=== PATIENT | female | born 1970 | race Caucasian/White ===

== ENCOUNTER 2020-09-04 13:18 | Observation (INO) | payer MEDICAID, SELFPAY ==
[2020-09-04] VITALS (73 sets, daily range): BP systolic 79–118; BP diastolic 47–94; PULSE 52–119; RESP 0–20; TEMP 36.5–38.2; TEMPC 37; O2SAT 92–98; BMI 22.3
[2020-09-04] MEDS: Normal Saline 1,000 ML 1000 ML IV (14:00)
--- NOTE | 2020-09-04 14:15 | DI.CT_ITS ---
Exam(s) CT ABDOMEN PELVIS W EXAM: CT ABDOMEN PELVIS W CLINICAL HISTORY: RLQ pain TECHNIQUE: Imaging Protocol: Axial computed tomography images with coronal and sagittal reformatted images were created and reviewed CONTRAST MATERIAL: Intravenous: Omnipaque 350 Contrast volume:100 mL Oral: No COMPARISON: No exams were available for comparison FINDINGS: ABDOMEN: Lung Bases: Dependent atelectasis is seen in the bases. The patient has bilateral breast implants. Liver: Normal density. No measurable mass. Portal, Superior Mesenteric, and Splenic Veins: Unremarkable. Gallbladder and Biliary Tract: No radiodense calculus or dilation. Pancreas: Normal density, no abnormal calcifications or inflammatory process. Spleen: Normal. Adrenals: Right and left adrenal glands are identified and are unremarkable. Kidneys: There is a solitary right kidney. No radiodense stones or obstructive uropathy. No masses s een. The patient is status post left nephrectomy. Abdominal Aorta: Abdominal portion non-dilated. Mild atherosclerosis. Bowel: No obstruction or bowel wall thickening. No evidence of appendicitis. There is a large amount of stool in the colon. Peritoneal Cavity: No ascites, collection or mesenteric inflammatory response. No free air. Lymph Nodes: Within normal limits. Bones: Within normal limits for the patient's age. Soft Tissues: Unremarkable. PELVIS: Bladder: Symmetric distention, no gross wall thickening. Reproductive Organs: There are surgical clips in the left adnexa. This may reflect on the patient's prior surgery. Possible tubal ligation. In the right adnexa, there is a 3.4 x 3.1 x 3.1 cm compl ex cystic lesion with layering high density material. In the left adnexa there is a complex cystic l esion measuring 7.1 x 5.3 x 7.0 cm. Lymph Nodes: Within normal limits. Bones: Within normal limits for the patient's age. IMPRESSION: 1. Bilateral complex cystic adnexal lesions which are likely ovarian in origin. While these may repr esent benign hemorrhagic cysts, infection or neoplasm cannot be entirely excluded. Ultrasound is rec ommended for further evaluation. 2. Constipation. 3. Left nephrectomy. RADIATION DOSE DELIVERED: 898.61mGy.cm Total DLP DATA REPOSITORY: All CT scans at this facility are submitted to the National Radiology Data Registry (NRDR) Dose Index Registry (DIR) with the [employer] (ACR). RADIATION OPTIMIZATION: All CT scans at this facility use at least one of these dose optimization te chniques: automated exposure control; mA and/or kV adjustment per patient size (includes targeted exa ms where dose is matched to clinical indication); or iterative reconstruction.
--- NOTE | 2020-09-04 14:23 | W.ED.GENAD ---
Discharge Plan Disposition Patient Disposition: [facility] INPATIENT Condition: Stable Discharge Details Clinical Impression: Mass of ovary Admit Date/Time: 09/04/20 22:22 Admit Provider: Galina Clifford Attending Provider: Karol Solano Primary Care Provider: Jamel Wong ED Provider: Kenneth Kramer Discharge Data Discharge Date/Time-TO BE ENTERED AT DEPARTURE: 09/04/20 20:45 Discharge Physician: Galina Clifford Medical Decision Making <Nikki Keenan MD - Last Filed: 09/10/20 21:35> Jael Roman is a 49 y/o woman who presented to the emergency department with several days of abdominal pain, initially central now more focal in the RLQ and more severe. On exam Pt is well and non-toxic appearing, but does appear uncomfortable. Diffuse TTP of the abdomen, worse in the RLQ. Concern for appy, colitis, UTI, other. Exam/hx at this time not c/w sepsis, PID, acute aortic pathology. Plan for IV placement, IV morphine (Pt states she would like pain meds but is very sensitive to opiates and requests low dose), IV zofran, screening labs, UA, CT abd/pelv, IV fluid hydration. Labs reviewed, WBC 12. Pt signed out to Dr. Kramer at time of shift change with CT results pending. Medical Records Medical records reviewed: Yes I reviewed the patient's medical records. Lab Data Lab results reviewed: Yes I reviewed the patient's lab results. Labs: 09/04/20 14:00 Blood Blood Culture - Pending 09/04/20 15:38 Blood Blood Culture - Pending Laboratory Tests Range/Units 09/04/20 09/04/20 09/04/20 14:00 14:00 14:15 WBC (4.4-10.8) 10^3/uL 12.42 H RBC (3.93-5.22) 10^6/uL 4.02 Hgb (11.2-15.7) g/dL 12.8 Hct (36.0-46.0) % 38.0 MCV (80-95) fL 94.5 MCH (27.0-33.0) pg 31.8 MCHC (32.0-36.0) % 33.7 RDW (11.7-14.6) % 14.5 Plt Count (130-400) 10^3/uL 275 MPV (8.0-11.0) fL 10.6 Immature Gran % 0.3 Neutrophils % 75.1 Lymphocytes % 13.5 Monocytes % 8.9 Eosinophils % 1.8 Basophils % 0.4 Nucleated RBC % % 0 Absolute Neutrophils (1.2-6.7) 10^3/uL 9.33 H Absolute Lymphocytes (1.2-3.4) 10^3/uL 1.68 Absolute Monocytes (0.1-0.8) 10^3/uL 1.11 H Absolute Eosinophils (0.0-0.7) 10^3/uL 0.22 Absolute Basophils (0.0-0.2) 10^3/uL 0.05 Sodium (136-145) mmol/L 138 Potassium (3.5-5.1) mmol/L 4.2 Chloride (98-107) mmol/L 103 Carbon Dioxide (21.0-32.0) mmol/L 24.4 Anion Gap (3-11) mmol/L 10.6 BUN (7-18) mg/dL 13 Creatinine (0.55-1.02) mg/dL 0.8 Estimated GFR/1.73 m2 (mL/min/1.73m2) >= 60.00 Glucose (74-106) mg/dL 93 Calcium (8.5-10.1) mg/dL 8.4 L Total Bilirubin (0.2-1.0) mg/dL 0.6 AST (15-37) U/L 22 ALT (14-59) U/L 27 Alkaline Phosphatase (46-116) U/L 50 Total Protein (6.4-8.2) g/dL 7.5 Albumin (3.4-5.0) g/dL 3.7 Lipase (73-393) U/L 173 Urine Color (Yellow) Yellow Urine Clarity (Clear) Clear Urine pH (5-8) 6.5 Ur Specific [place] (1.005-1.025) 1.020 Urine Protein (Negative) mg/dL Negative Urine Ketones (Negative) mg/dL Negative Urine Blood (Negative) Small H Urine Nitrite (Negative) Negative Urine Bilirubin (Negative) Negative Urine Urobilinogen (Up TO 0.2) EU/dL 0.2 Ur Leukocyte Esterase (Negative) Negative Urine RBC (0-2) HPF 0-2 Urine WBC (0-5) HPF Negative Ur Epithelial Cells (Negative) HPF Moderate Urine Crystals (Negative) HPF Negative Urine Bacteria (Negative) HPF Rare Urine Casts (Negative) LPF Negative Urine Mucus (Negative) Negative Ur Culture Indicated? No Urine Glucose (Negative) mg/dL Negative <Kenneth Kramer, DO - Last Filed: 09/04/20 20:08> Patient was signed out to me my colleague Sena Ree. Please refer to her HPI, physical exam assessment and plan. At time of signout we are waiting on reassessment and CT imaging. CT imaging has returned and there appears to be a large 7 cm adnexal mass. On reassessment upon my discussion with the patient it appears that the pain seems to be coming and going and is notably severe during its presence. Signs and symptoms are certainly concerning for clinical torsion at the specific time of my reassessment. However currently right now the patient feels well and pain is well controlled. I did contact Dr. Clifford of a [facility] and discussed the case with her. She to is concern for torsion picture. Patient is made it clear that she does not want to have any children, and she is actually discussed with other surgeons having her uterus and ovaries removed in the past. At this time Dr. Clifford would like to take the patient to surgery for surgical removal of the mass. Patient will be admitted for further management. I have extensively reviewed the treatment plan and discharge instructions with the patient. I have addressed all patient concerns at this time. The patient was made aware of what symptoms to monitor for that would warrant a return to the emergency department. Discussed the plan with the patient, they demonstrate verbal understanding and agreement with our assessment and plan at this time. The documentation in this chart was dictated using [employer] dictation software. Please excuse any dictation errors. FINDINGS: Lungs: Dependent atelectasis in the lung bases. Liver: Normal. No mass. Gallbladder and bile ducts: Normal. No calcified stones. No ductal dilation. Pancreas: Normal. No ductal dilation. Spleen: Normal. No splenomegaly. Adrenal glands: Normal. No mass. Kidneys and ureters: Solitary right kidney. Stomach and bowel: Large amount of stool in the colon. Appendix: No evidence of appendicitis but the appendix is not visualized. Intraperitoneal space: Unremarkable. No free air. No significant fluid collection. Vasculature: Unremarkable. No abdominal aortic aneurysm. Lymph nodes: Unremarkable. No enlarged lymph nodes. Urinary bladder: Unremarkable as visualized. Reproductive: There are 2 clips in the left adnexa which have an appearance suggestive of tubal ligation clips. These could be related to the patient's previous bladder surgery. Complex cystic lesion in the posterior left adnexa measuring approximately 7.1 by 5.3 by 7 cm in AP, transverse, and craniocaudad dimension. This contains a unilocular cystic component that could be a very large ovarian cyst. In the posterior right adnexa there is a more complex appearing cyst with higher density material layering posteriorly that could be a hemorrhagic cyst. This measures approximately 3.4 x 3.1 by 3.1 cm in AP, transverse, and craniocaudad dimension. Ultrasound is recommended. Bones/joints: Unremarkable. No acute fracture. Soft tissues: Bilateral breast implants. IMPRESSION: 1. Complex cystic lesions in the bilateral adnexa, right greater than left, measuring approximately 7.1 cm. These could be due to functional, inflammatory, or neoplastic etiology. Ultrasound recommended. 2. Constipation 3. Left nephrectomy Thank you for allowing us to participate in the care of your patient. Dictated and Authenticated by: Bita Dinero MD 09/04/2020 5:44 PM Eastern Time ([place] & [place]) FINDINGS: Lungs: Lungs are clear without consolidation. Pulmonary tricia: Unremarkable contours. Pleural spaces: No pleural effusion. No pneumothorax. Heart/Mediastinum: Unremarkable contours. No cardiomegaly. Bones/joints: Unremarkable. Intraperitoneal space: Visualized upper abdomen is unremarkable. IMPRESSION: No acute findings. No pneumonia. Thank you for allowing us to participate in the care of your patient. Dictated and Authenticated by: Kevin Cardenas MD 09/04/2020 6:47 PM Eastern Time ([place] & [place]) HPI <Nikki Keenan MD - Last Filed: 09/10/20 21:35> General Mode of arrival: ambulatory. Date/Time Provider Initiated Documentation: 09/04/20 13:45. Limitations to Documentation: no limitations. Information obtained by: patient, RN notes reviewed and old records reviewed. HPI Narrative: Jael Roman is a 49-year-old woman with a history of bladder cancer now in remission status post left nephrectomy, thyroid cancer now in remission status post thyroidectomy presenting to the emergency department with abdominal pain. Patient reports that she has had abdominal pain since 08/31/2020, has been intermittent, cramping in nature. Patient reports that feels like it has been mostly located in her central lower abdomen. Patient reports that pain has gradually become constant dull with intermittent worsening that feels like what she describes as severe gas pains. Has gradually become worse in the right lower quadrant. Patient reports that she has not had similar pain in the past. LMP 08/30/2020. She denies any other pain, vomiting, diarrhea, constipation, cough, shortness of breath, numbness, weakness, rash. Patient reports that she does have some spasming pain in her lower abdomen with urination, but no burning with urination. No hematuria. Patient reports that her LMP started 08/30/2020. Related Data Home Medications Medication Instructions Recorded Confirmed levothyroxine 112 mcg PO DAILY 09/04/20 09/04/20 Allergies Allergy/AdvReac Type Severity Reaction Status Date / Time ciprofloxacin [From Cipro] AdvReac Severe Diarrhea Unverified 09/04/20 13:43 General Stated Complaint: Abd Prob JERRY: 2 Review of Systems <Nikki Keenan MD - Last Filed: 09/10/20 21:35> Narrative: Constitutional: denies fevers Eyes: denies eye pain ENT: denies ear pain, dental pain, sore throat Cardiovascular: denies chest pain, edema Respiratory: denies SOB, cough GI: denies vomiting, diarrhea, reports abdominal pain : denies flank pain, dysuria MSK: denies back pain, neck pain, arthralgias, myalgias Skin: denies rash Neuro: denies headaches, numbness, weakness PFS <Nikki Keenan MD - Last Filed: 09/10/20 21:35> Medical History (Updated 09/04/20 @ 19:52 by Galina Clifford MD) Abdominal pain History of bladder cancer History of kidney cancer Surgical History (Updated 09/04/20 @ 22:34 by Galina Clifford MD) H/O left nephrectomy H/O tubal ligation History of delivery S/P left oophorectomy 09/04/20. 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 Do you feel safe at home: Yes Do you feel safe in your relationship?: Yes History History 1 Para 1 Hx # Term Pregnancies Multiple births Hx # Pregnancies Ectopic pregnancies AB induced Hx Number of Living Children 1 AB spontaneous Exam <Nikki Keenan MD - Last Filed: 09/10/20 21:35> Narrative Exam Narrative: Constitutional: intermittently uncomfortable but [id number], pleasant HENT: head atraumatic/normocephalic/normal inspection, mucous membranes moist Eyes: conjunctiva normal, sclera normal, pupils 3mm b/l Neck: no stridor, normal ROM, trachea midline Chest: normal inspection Resp: normal work of breathing, LCTAB Cardio: normal rate, normal rhythm, no murmur appreciated GI: abdomen soft, diffuse tenderness to palpation worse in RLQ, + guarding, no rebound, non-distended Back: normal inspection, no rash Skin: warm, dry, normal color, no rash Neuro: alert, not altered, grossly non-focal, normal tone Ext: no edema Psych: normal mood, normal affect, normal behavior Course <Nikki Keenan MD - Last Filed: 09/10/20 21:35> Vital Signs Vital signs: Vital Signs Temperature 38.2 C H 09/04/20 13:36 Pulse 67 09/04/20 13:36 Respiratory Rate 18 09/04/20 13:36 Blood Pressure 102/63 09/04/20 13:36 Pulse Oximetry 98 09/04/20 13:36 Temperature 38.2 C H 09/04/20 13:36 Temperature Source Tympanic 09/04/20 13:36 Pulse 67 09/04/20 13:36 Respiratory Rate 18 09/04/20 13:36 Respiratory Effort Non-Labored 09/04/20 13:41 Blood Pressure 102/63 09/04/20 13:36 Blood Pressure Position Sitting 09/04/20 13:36 Pulse Oximetry 98 09/04/20 13:36 Oxygen Delivery Method Room Air 09/04/20 13:36 Oxygen Flow Rate 0 09/04/20 13:36 Pain Level 10 09/04/20 13:36 Sign Out <Nikki Keenan MD - Last Filed: 09/10/20 21:35> Sign Out Data: Sign Out Comment: Patient signed out to Dr. Kramer at time of shift change with imaging, reassessment pending Last updated by Nikki Keenan MD at 09/04/20 16:32
[2020-09-04 14:31] LABS: Bilirubin Negative (Negative); Blood Small (Negative); Clarity Clear (Clear); Glucose Negative (Negative); Ketones Negative (Negative); Leukocyte Esterase Negative (Negative); Nitrite Negative (Negative); Urobilinogen 0.2 EU/dL (Up TO 0.2); pH 6.5 (5-8)
[2020-09-04 14:33] LABS: Abs Immature Grans 0.04 10^3/uL (0.0-0.06); Absolute Basophil Count 0.05 10^3/uL (0.0-0.2); Absolute Eosinophil Count 0.22 10^3/uL (0.0-0.7); Absolute Lymphocyte Count 1.68 10^3/uL (1.2-3.4); Absolute Monocyte Count 1.11 10^3/uL (0.1-0.8); Basophils % 0.4; Eosinophils % 1.8; HGB 12.8 g/dL (11.2-15.7); Immature Grans % 0.3; Lymphocytes % 13.5; MCH 31.8 pg (27.0-33.0); MCHC 33.7 % (32.0-36.0); MCV 94.5 fL (80-95); MPV 10.6 fL (8.0-11.0); Monocytes % 8.9; Neutrophils % 75.1; Nucleated RBC 0 %; Platelet Count 275 10^3/uL (130-400); RBC 4.02 10^6/uL (3.93-5.22); RDW 14.5 % (11.7-14.6); RDW-SD 50.5 fL; WBC 12.42 10^3/uL (4.4-10.8)
[2020-09-04 14:34] LABS: Absolute Neutrophil Count 9.33 10^3/uL (1.2-6.7)
[2020-09-04 14:43] LABS: Bacteria Rare HPF (Negative); C & S Indicated? No; Casts Negative LPF (Negative); Crystals Negative HPF (Negative); Epithelial Cells Moderate HPF (Negative); Mucus Negative (Negative); RBC 0-2 HPF (0-2); WBC Negative HPF (0-5)
[2020-09-04 15:20] LABS: ALT 27 U/L (14-59); AST 22 U/L (15-37); Albumin 3.7 g/dL (3.4-5.0); Alkaline Phosphatase 50 U/L (46-116); Anion Gap 10.6 mmol/L (3-11); BUN 13 mg/dL (7-18); Bilirubin, Total 0.6 mg/dL (0.2-1.0); CO2 24.4 mmol/L (21.0-32.0); CREATININE 0.8 mg/dL (0.55-1.02); Calcium 8.4 mg/dL (8.5-10.1); Chloride 103 mmol/L (98-107); Glucose 93 mg/dL (74-106); Potassium 4.2 mmol/L (3.5-5.1); Sodium 138 mmol/L (136-145); Total Protein 7.5 g/dL (6.4-8.2)
[2020-09-04 15:27] LABS: Lipase 173 U/L (73-393)
[2020-09-04] MEDS: Normal Saline Flush 10 ML SYR IVP (16:44)
[2020-09-04 17:00] LABS: Lactate 0.6 mmol/L (0.6-1.4)
[2020-09-04] MEDS: Omnipaque 350 MG/ML 100 ML BTL IV (17:15)
[2020-09-04] MEDS: Normal Saline - Diluent 50 ML VIAL IV (17:16)
--- NOTE | 2020-09-04 17:45 | DI.VRAD_ITS ---
PROCEDURE INFORMATION: Exam: CT Abdomen And Pelvis With Contrast Exam date and time: 09/04/2020 4:52 PM Age: 49 years old Clinical indication: Prior surgery; Surgery date: 6+ months; Patient HX: Rlq pain, xh bladder CA , bladder resection and lt nephrectomy in 2017 TECHNIQUE: Imaging protocol: Computed tomography of the abdomen and pelvis with contrast. Radiation optimization: All CT scans at this facility use at least one of these dose optimization techniques: automated exposure control; mA and/or kV adjustment per patient size (includes targeted exams where dose is matched to clinical indication); or iterative reconstruction. Contrast material: OMNIPAQUE 350; Contrast volume: 100 ml; Contrast route: INTRAVENOUS (IV); COMPARISON: No relevant prior studies available. FINDINGS: Lungs: Dependent atelectasis in the lung bases. Liver: Normal. No mass. Gallbladder and bile ducts: Normal. No calcified stones. No ductal dilation. Pancreas: Normal. No ductal dilation. Spleen: Normal. No splenomegaly. Adrenal glands: Normal. No mass. Kidneys and ureters: Solitary right kidney. Stomach and bowel: Large amount of stool in the colon. Appendix: No evidence of appendicitis but the appendix is not visualized. Intraperitoneal space: Unremarkable. No free air. No significant fluid collection. Vasculature: Unremarkable. No abdominal aortic aneurysm. Lymph nodes: Unremarkable. No enlarged lymph nodes. Urinary bladder: Unremarkable as visualized. Reproductive: There are 2 clips in the left adnexa which have an appearance suggestive of tubal ligation clips. These could be related to the patient's previous bladder surgery. Complex cystic lesion in the posterior left adnexa measuring approximately 7.1 by 5.3 by 7 cm in AP, transverse, and craniocaudad dimension. This contains a unilocular cystic component that could be a very large ovarian cyst. In the posterior right adnexa there is a more complex appearing cyst with higher density material layering posteriorly that could be a hemorrhagic cyst. This measures approximately 3.4 x 3.1 by 3.1 cm in AP, transverse, and craniocaudad dimension. Ultrasound is recommended. Bones/joints: Unremarkable. No acute fracture. Soft tissues: Bilateral breast implants. IMPRESSION: 1. Complex cystic lesions in the bilateral adnexa, right greater than left, measuring approximately 7.1 cm. These could be due to functional, inflammatory, or neoplastic etiology. Ultrasound recommended. 2. Constipation 3. Left nephrectomy Dictated and Authenticated by: Bita Dinero MD. Ordering:SHANNAN Jordan MD
--- NOTE | 2020-09-04 18:15 | DI.RAD_ITS ---
Exam(s) XR PORTABLE CHEST AP EXAM: XR PORTABLE CHEST AP CLINICAL HISTORY: fever, r/o infiltrate TECHNIQUE: 2D digital imaging was performed. COMPARISON: No exams were available for comparison FINDINGS: MEDIASTINUM: Normal. HEART: Normal. PULMONARY VASCULATURE: Normal. LUNGS: Clear. PLEURAL SPACE: No pleural effusion or pneumothorax. BONE:Within normal limits for the patient's age. OTHER FINDINGS:Normal. IMPRESSION: No acute pulmonary findings. DATA REPOSITORY: RADIATION DOSE DELIVERED:
--- NOTE | 2020-09-04 18:47 | DI.VRAD_ITS ---
PROCEDURE INFORMATION: Exam: XR Chest Exam date and time: 09/04/2020 6:23 PM Age: 49 years old Clinical indication: Other: Fever, R/O infiltrate TECHNIQUE: Imaging protocol: XR of the chest. Views: 1 view. Total images: 1 COMPARISON: No relevant prior studies available. FINDINGS: Lungs: Lungs are clear without consolidation. Pulmonary tricia: Unremarkable contours. Pleural spaces: No pleural effusion. No pneumothorax. Heart/Mediastinum: Unremarkable contours. No cardiomegaly. Bones/joints: Unremarkable. Intraperitoneal space: Visualized upper abdomen is unremarkable. IMPRESSION: No acute findings. No pneumonia. Dictated and Authenticated by: Kevin Cardenas MD. Ordering:RODOLFO Cooper MD
--- NOTE | 2020-09-04 19:37 | W.ANESPRE ---
General Info Date of Service Date Performed: 09/04/20 Height: 5 ft 1 in Weight: 53.524 kg Body Mass Index (BMI): 22.3 Meds Allergies and Home Medications Allergies Allergy/AdvReac Type Severity Reaction Status Date / Time ciprofloxacin [From Cipro] AdvReac Severe Diarrhea Unverified 09/04/20 13:43 Home Medication Medication Instructions Recorded levothyroxine 112 mcg PO DAILY 09/04/20 Current Visit Medications: Current Medications Generic Name Dose Route Start Last Admin Trade Name Freq PRN Reason Stop Dose Admin IV Miscellaneous Supplies 1 each 09/04/20 14:15 Iv Access IV DIRECTED SOCORRO Iohexol 100 ml 09/04/20 17:15 09/04/20 17:15 Omnipaque 350 Mg/Ml 100 Ml Btl IV 10/04/20 23:59 100 ml DIRECTED SOCORRO Administration Sodium Chloride 0 ml 09/04/20 14:05 09/04/20 16:44 Normal Saline Flush 10 Ml Syr IVP 20 ml PRN PRN Administration Sodium Chloride 50 ml 09/04/20 17:30 09/04/20 17:16 Normal Saline - Diluent 50 Ml Vial IV 50 ml .FOR DI USE SOCORRO Administration PFSH Active Problems Active Problems: Problem Status Onset Code Mass of ovary N83.8 Tobacco Smoking/Tobacco Use Status: Former Tobacco Use Alcohol Alcohol Intake: former Substance Use Substance use: Never Vital Signs and Lab Results Vital Signs Most Recent Vital Signs in EMR: Most Recent Vital Signs Temp Pulse Resp BP Pulse Ox 38.2 C H 66 16 100/63 97 09/04/20 13:36 09/04/20 18:45 09/04/20 18:31 09/04/20 18:45 09/04/20 18:45 Point of Care Results Point of Care Results: POC- Test(urine) Negative 09/04/20 14:39 Lab Results Result Diagrams: 09/04/20 14:00 09/04/20 14:00 Blood Type / Crossmatch: No Data to Display Complete Blood Count: White Blood Count 12.42 10^3/uL (4.4-10.8) H 09/04/20 14:00 09/04/20 Red Blood Count 4.02 10^6/uL (3.93-5.22) 09/04/20 14:00 09/04/20 Hemoglobin 12.8 g/dL (11.2-15.7) 09/04/20 14:00 09/04/20 Hematocrit 38.0 % (36.0-46.0) 09/04/20 14:00 09/04/20 Platelet Count 275 10^3/uL (130-400) 09/04/20 14:00 09/04/20 Complete Metabolic Panel: Sodium Level 138 mmol/L (136-145) 09/04/20 14:00 09/04/20 Potassium Level 4.2 mmol/L (3.5-5.1) 09/04/20 14:00 09/04/20 Chloride Level 103 mmol/L (98-107) 09/04/20 14:00 09/04/20 Carbon Dioxide Level 24.4 mmol/L (21.0-32.0) 09/04/20 14:00 09/04/20 Blood Urea Nitrogen 13 mg/dL (7-18) 09/04/20 14:00 09/04/20 Creatinine 0.8 mg/dL (0.55-1.02) 09/04/20 14:00 09/04/20 Calcium Level 8.4 mg/dL (8.5-10.1) L 09/04/20 14:00 09/04/20 Albumin 3.7 g/dL (3.4-5.0) 09/04/20 14:00 09/04/20 Glucose Level 93 mg/dL (74-106) 09/04/20 14:00 09/04/20 Liver Function Panel: Alanine Aminotransferase (ALT/SGPT) 27 U/L (14-59) 09/04/20 14:00 09/04/20 Aspartate Amino Transf (AST/SGOT) 22 U/L (15-37) 09/04/20 14:00 09/04/20 Coagulation Panel: No Data to Display Cardiac Panel: No Data to Display Arterial Blood Gas: No Data to Display Venous Blood Gas: Venous Blood Lactate 0.6 mmol/L (0.6-1.4) 09/04/20 16:45 09/04/20 Pancreas Panel: Lipase 173 U/L (73-393) 09/04/20 14:00 09/04/20 Thyroid Panel: No Data to Display Infectious Disease: Coronavirus (COVID-19)(PCR) Pending 09/04/20 18:27 09/04/20 Coronavirus 2019 Source Nasopharyx 09/04/20 18:27 09/04/20 Blood Cultures: No Data to Display Toxicology Panel: No Data to Display Panel: No Data to Display Anesthesia Assessment and Plan Anesthesia History Personal History: No History of Anesthesia Complications Family History: No Family History of Anesthesia Complications Exercise Tolerance Exercise Tolerance: Metabolic Equivalents>4 Pertinent Negatives Pertinent Negatives: No Symptoms of GERD Cardiac & Pulmonary Exam Cardiac Exam: Normal S1/S2 Heart Sounds Pulmonary Exam: Clear Bilateral Breath Sounds Airway Exam Known Difficult Airway: No Mallampati Class: 2 Mouth Opening: Normal (> 3cm) Thyromental Distance: Greater than 3 cm Neck Range of Motion: Full ROM Neck Circumference: Normal Teeth Condition: Normal Dentition ASA Classification ASA Score: ASA 2 Emergency Case?: No NPO Status NPO Status: NPO Clears >2 hours, Solids >8 hours Status Status: Negative HCG Anesthesia Plan Resuscitation Status: Full Code Anesthesia Technique: General Anesthesia Airway Planned: Endotracheal Tube Monitors Used: Standard Monitors
--- NOTE | 2020-09-04 19:38 | HPE_ITS ---
Date of service: 09/04/20 Time of Service: 19:39 Assessment and Plan Assessment and plan (1) Mass of ovary: Status: Acute Assessment and plan: Most likely a ovarian torsion. I recommended to the patient that she have a laparoscopic left oophorectomy this evening. Informed consent was obtained. I reviewed the risk of the procedure including damage to surrounding structures including bowel bladder ureters and blood vessels. The need for a larger incision if any of those structures were to be injured. I explained to the patient that on reviewing the images it appears that this is a benign process and that the plan is to remove the ovary intact through the umbilicus. Her questions answered. (2) Abdominal pain: Status: Acute Qualifiers: Abdominal location: generalized Qualified Code(s): R10.84 - Generalized abdominal pain History of Present Illness History of Present Illness Chief Complaint: abdominal pain Consults Consult date: 09/04/20 Narrative: Pt is a 49yo female who presented to [facility] ED with 72hrs of worsening abdominal pain. No precipitating events. Pt has just completed menses. CT of abd/pelvis in ED shows [id number] cystic structure in L adnexa and R hemorrhagic ovarian cyst. Not able to determine blood flow to either adnexal structure. No pelivic free fluid, otherwise nl abd CT. Review of Systems Gastrointestinal Gastrointestinal: Reports abdominal pain, Denies change in bowel habits and Reports nausea Genitourinary Genitourinary: Reports as per HPI (Regular menses) and Reports pelvic pain (Intermittent, sharp diffuse to pelvis) Musculoskeletal Musculoskeletal: Reports system reviewed and no additional complaints, except as documented Psychiatric Psychiatric: Reports anxiety (Secondary to discomfort) [facility] Medical History (Updated 09/04/20 @ 19:52 by Galina Clifford MD) Abdominal pain History of bladder cancer History of kidney cancer Surgical History (Updated 09/04/20 @ 22:29 by Galina Clifford MD) H/O left nephrectomy H/O tubal ligation History of delivery Social History (Updated 09/04/20 @ 19:45 by Galina Clifford MD) Smoking/Tobacco Use Status: Former Tobacco Use Smoking risk assessment performed?: Yes Alcohol Intake: former Drug use: Never Household members: significant other Number of Children: 1 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 Do you feel safe at home: Yes Do you feel safe in your relationship?: Yes History History 1 Para 1 Hx # Term Pregnancies Multiple births Hx # Pregnancies Ectopic pregnancies AB induced Hx Number of Living Children 1 AB spontaneous Meds Allergies and Home Medications Allergies Allergy/AdvReac Type Severity Reaction Status Date / Time ciprofloxacin [From Cipro] AdvReac Severe Diarrhea Unverified 09/04/20 13:43 Home Medications Medication Instructions Recorded Confirmed Type levothyroxine 112 mcg PO DAILY 09/04/20 09/04/20 History Exam Narrative Exam Narrative: Patient has returned from CAT scan. Lying on gurney in [place] position with mild distress. Her sister is with her Const General: in distress Nutritional Appearance: average body habitus Orientation: alert, awake and oriented x3 Neck Neck: normal visual inspection Resp Effort & Inspection: normal respiratory effort Auscultation: clear to auscultation bilaterally Cardio Rate: regular rate Rhythm: regular rhythm GI Inspection: incision (Healed Pfannenstiel skin incision) Palpation: firm, guarding and tender in the LLQ and in the RLQ Rectal Exam - female: deferred General: deferred (Abdominal exam shows diffuse tenderness bimanual exam deferred) Skin General skin exam: no rashes or lesions noted Extrem General: normal to inspection, full ROM and no clubbing, cyanosis or edema Psych Appearance: grossly normal Mental Status: mental status grossly normal Speech and Movement: speech and movement normal Mood: anxious mood Affect: anxious affect Attitude: cooperative Thought Process: normal Thought Content: normal Insight: insight good Judgment: judgment good Results Labs Result diagrams: 09/04/20 14:00 09/04/20 14:00 Labs: Laboratory Results - last 24 hr 09/04/20 09/04/20 09/04/20 14:00 14:00 14:15 WBC 12.42 H RBC 4.02 Hgb 12.8 Hct 38.0 MCV 94.5 MCH 31.8 MCHC 33.7 RDW 14.5 Plt Count 275 MPV 10.6 Immature Gran % 0.3 Neutrophils % 75.1 Lymphocytes % 13.5 Monocytes % 8.9 Eosinophils % 1.8 Basophils % 0.4 Nucleated RBC % 0 Absolute Neutrophils 9.33 H Absolute Lymphocytes 1.68 Absolute Monocytes 1.11 H Absolute Eosinophils 0.22 Absolute Basophils 0.05 VBG Lactate Sodium 138 Potassium 4.2 Chloride 103 Carbon Dioxide 24.4 Anion Gap 10.6 BUN 13 Creatinine 0.8 Estimated GFR/1.73 m2 >= 60.00 Glucose 93 Calcium 8.4 L Total Bilirubin 0.6 AST 22 ALT 27 Alkaline Phosphatase 50 Total Protein 7.5 Albumin 3.7 Lipase 173 Urine Color Yellow Urine Clarity Clear Urine pH 6.5 Ur Specific [place] 1.020 Urine Protein Negative Urine Ketones Negative Urine Blood Small H Urine Nitrite Negative Urine Bilirubin Negative Urine Urobilinogen 0.2 Ur Leukocyte Esterase Negative Urine RBC 0-2 Urine WBC Negative Ur Epithelial Cells Moderate Urine Crystals Negative Urine Bacteria Rare Urine Casts Negative Urine Mucus Negative Ur Culture Indicated? No Urine Glucose Negative COVID-19 Source 09/04/20 09/04/20 16:45 18:27 WBC RBC Hgb Hct MCV MCH MCHC RDW Plt Count MPV Immature Gran % Neutrophils % Lymphocytes % Monocytes % Eosinophils % Basophils % Nucleated RBC % Absolute Neutrophils Absolute Lymphocytes Absolute Monocytes Absolute Eosinophils Absolute Basophils VBG Lactate 0.6 Sodium Potassium Chloride Carbon Dioxide Anion Gap BUN Creatinine Estimated GFR/1.73 m2 Glucose Calcium Total Bilirubin AST ALT Alkaline Phosphatase Total Protein Albumin Lipase Urine Color Urine Clarity Urine pH Ur Specific [place] Urine Protein Urine Ketones Urine Blood Urine Nitrite Urine Bilirubin Urine Urobilinogen Ur Leukocyte Esterase Urine RBC Urine WBC Ur Epithelial Cells Urine Crystals Urine Bacteria Urine Casts Urine Mucus Ur Culture Indicated? Urine Glucose COVID-19 Source Nasopharyx Last Vital Signs Temp 100.8 F H 09/04/20 13:36 Pulse 66 09/04/20 18:45 Resp 16 09/04/20 18:31 BP 100/63 09/04/20 18:45 Pulse Ox 97 09/04/20 18:45 COVID-19 Screening Have you, or household traveled for leisure in last 14 days?: No Had IN PERSON contact w/suspected or confirmed C-19 person: No
[2020-09-04 19:42] LABS: COVID-19 PCR Negative (Negative)
[2020-09-04] MEDS: Lactated Ringers 1,000 ML 30 ML IV (20:44)
--- NOTE | 2020-09-04 21:41 | PAPNONF_PTH ---
PATIENT: Jael Roman LOC: OBS U#:[id number] AGE/SX: 49/F ROOM: OBS.305 RE09/04/[address]: Karol Solano : 1970 BED: A DIS: 09/05/2020 SPEC #: [id number] RECD: 09/05/20 13:05 STATUS: MINI REQ #: [id number] ANGELA: 09/04/20 21:[address]: Karol Solano DEPT: [facility] Cytology RECD BY: Kelly Guzman ENTERED: 09/05/20 13:05 SP TYPE: LOLITA BENDER DR: Jamel Wong Anne Tissues: 1 - BODY FLUID CYTO(NOT S/U/N/EM)[facility] Procedures: BODY FLUID CYTO(NOT SPU/UR/NIP/ENDOM)[facility] Comments: [id number] (TOTAL VOLUME = 30 ml's, SENT FRESH)
--- NOTE | 2020-09-04 21:41 | OVAR_PTH ---
PATIENT: Jael Roman LOC: OBS U#:[id number] AGE/SX: 49/F ROOM: OBS.305 RE09/04/[address]: Karol Solano : 1970 BED: A DIS: 09/05/2020 SPEC #: [id number] RECD: 09/05/20 12:52 STATUS: MINI REQ #: [id number] ANGELA: 09/04/20 21:[address]: Karol Solano DEPT: Surgical Specimen RECD BY: Kelly Guzman ENTERED: 09/05/20 12:52 SP TYPE: JSR YULIA DR: Jamel Wong Anne Tissues: 1 - OVARY NOT TUMOR W OR W/O TUBES Procedures: GROSS AND MICRO LEVEL 4 Comments: [id number]
[2020-09-04] MEDS: Bupivacaine 0.25% Pres-Free 30 ML VIAL (21:56)
--- NOTE | 2020-09-04 22:21 | W.ANESPOSTOP ---
Postoperative Evaluation Date, Time and Location Date Performed: 09/04/20 Time Performed: 22:22 Patient Location: PACU Vital Signs Most Recent Imported Vital Signs: Most Recent Vital Signs Temp Pulse Resp BP Pulse Ox 36.5 C 58 L 18 83/52 L 98 09/04/20 22:20 09/04/20 22:20 09/04/20 22:20 09/04/20 22:20 09/04/20 22:20 Most Recent Manually Entered Vital Signs: Adult Blood Pressure: 87/47 Heart Rate: 57 Respirations: 17 Oxygen Saturation (%): 95 Temperature (C): 37 C Pain Score (0-10 Scale): 0 Pain Score Most Recent Pain Score: Most Recent Pain Score Pain Level 3 09/04/20 16:43 Assessment Mental Status: Awake (Alert & Oriented to Patient Baseline) Airway and Respiratory Function: Patent airway with normal (patient baseline) respiratory exam Cardiovascular Function: Hemodynamically Stable Hydration Status: Adequately Hydrated Nausea & Vomiting: No Nausea or Vomiting Pain: Pain is Moderate or Severe Postoperative Pain Management: Pain being addressed with medication Peripheral Nerve Block: Patient did not receive a nerve block
[2020-09-04] MEDS: fentaNYL 100 MCG/2 ML VIAL IVP ×3 (22:28→22:40)
--- NOTE | 2020-09-04 22:32 | W.PM.DS.N ---
Date of service: 09/04/20 Time of Service: 22:32 DS: Diagnosis Discharge Diagnosis (1) Mass of ovary: Status: Acute (2) Abdominal pain: Status: Acute (3) S/P left oophorectomy: Status: Acute Discharge Plan Disposition Patient Disposition: HOME Condition: Stable Discharge Details Reason For Visit: Laparoscopic L oophorectomy Attending Provider: Karol Solano Primary Care Provider: Jamel Wong Home Meds and New Rx's Prescriptions: No Action levothyroxine 112 mcg Tablet 112 mcg PO DAILY RF: 0 Discharge Instructions Additional Instructions: Pt may be discharged to home when tolerating po's and ambulatory. IV may be discontinued when tolerating po's. She has skin glue on her incisions. No dressing needed. She may use over the counter Ibuprofen, 600mg every 6 hours as needed for pain. Pt has a previous prescription of Vicodin 5/325mg that she may use for more severe pain every 6 hours as needed. Pt will need to f/u with Dr. Clifford in one week for a post op check and to be released to return to work. The [facility] office will call her in the am with a date and time. Stand Alone Forms: DSU Post Gynecology Surgery Activity:: Activity as Tolerated Shower/Bathe:: 24 hours Diet:: As Tolerated Discharge Orders Discharge Orders: Discharge Order (Routine); Ordered 09/04/20 Ordered By: Galina Clifford DS: Summary Time Spent with Patient providing and/or coordinating discharge services: Less than 30 minutes Status at Discharge Functional status at discharge: independent ambulation Overall status at discharge: patient is progressing back to baseline Mental Status: mental status grossly normal Speech and Movement: speech and movement normal Mood: congruent mood Affect: normal affect Exam Narrative Exam Narrative: Patient presented to the [facility] emergency department on 09/04/2020 with 72 hours of abdominal pain. CAT scan of the abdomen revealed 7 cm ovarian cyst strongly suggestive of ovarian torsion. She underwent a laparoscopic left oophorectomy and was discharged to home after surgery. Findings at the time of surgery: Discolored enlarged ovarian cyst with torsion of the infundibulopelvic ligament. Normal pelvic free fluid. Patient previously undergone a bilateral tubal sterilization with Filshie clips which were present. Left ovary was normal in appearance. Left ovary and serous fluid aspirated from the ovary were sent to pathology. Results currently pending. Const General: no acute distress Nutritional Appearance: average body habitus Orientation: alert, awake and oriented x3 Resp Effort & Inspection: normal respiratory effort Cardio Rate: regular rate Rhythm: regular rhythm GI Inspection: incision (Clean dry and intact with skin glue in place) Palpation: soft and tender Percussion: normal to percussion General: deferred Skin General skin exam: no rashes or lesions noted Extrem General: normal to inspection, full ROM and no clubbing, cyanosis or edema Psych Appearance: grossly normal Mental Status: mental status grossly normal Speech and Movement: speech and movement normal Mood: congruent mood Affect: normal affect DS: Data Vitals/I&O Vitals and I&O: Vital Signs Temperature 98.6 F 09/04/20 22:32 Temperature Source Tympanic 09/04/20 13:36 Pulse 55 L 09/04/20 22:32 Pulse 64 09/04/20 20:31 Respiratory Rate 16 09/04/20 22:32 Respiratory Effort Non-Labored 09/04/20 13:41 Blood Pressure 83/50 L 09/04/20 22:32 Blood Pressure Mean 72 09/04/20 20:30 Blood Pressure Position Sitting 09/04/20 13:36 Pulse Oximetry 95 09/04/20 22:32 Respiratory End-tidal CO2 33 09/04/20 22:32 Oxygen Delivery Method Room Air 09/04/20 22:32 Oxygen Flow Rate 2 09/04/20 22:20 Pain Level 8 09/04/20 22:32 Intake & Output 09/03/20 09/04/20 09/04/20 23:59 11:59 23:59 Intake Total 1400 / 1400 Balance 1400 / 1400 Weight 118 lb Intake: IV 1400 / 1400 Other: Urine Color Yellow Urine Appearance Clear Emesis Description None Data Completed and Pending Labs on day of discharge: Labs from last 24 hours 09/04/20 09/04/20 09/04/20 18:27 16:45 14:15 WBC RBC Hgb Hct MCV MCH MCHC RDW Plt Count MPV Immature Gran % Neutrophils % Lymphocytes % Monocytes % Eosinophils % Basophils % Nucleated RBC % Absolute Neutrophils Absolute Lymphocytes Absolute Monocytes Absolute Eosinophils Absolute Basophils VBG Lactate 0.6 Sodium Potassium Chloride Carbon Dioxide Anion Gap BUN Creatinine Estimated GFR/1.73 m2 Glucose Calcium Total Bilirubin AST ALT Alkaline Phosphatase Total Protein Albumin Lipase Urine Color Yellow Urine Clarity Clear Urine pH 6.5 Ur Specific [place] 1.020 Urine Protein Negative Urine Ketones Negative Urine Blood Small H Urine Nitrite Negative Urine Bilirubin Negative Urine Urobilinogen 0.2 Ur Leukocyte Esterase Negative Urine RBC 0-2 Urine WBC Negative Ur Epithelial Cells Moderate Urine Crystals Negative Urine Bacteria Rare Urine Casts Negative Urine Mucus Negative Ur Culture Indicated? No Urine Glucose Negative COVID-19 Source Nasopharyx SARS-CoV-2 (PCR) Negative 09/04/20 09/04/20 14:00 14:00 WBC 12.42 H RBC 4.02 Hgb 12.8 Hct 38.0 MCV 94.5 MCH 31.8 MCHC 33.7 RDW 14.5 Plt Count 275 MPV 10.6 Immature Gran % 0.3 Neutrophils % 75.1 Lymphocytes % 13.5 Monocytes % 8.9 Eosinophils % 1.8 Basophils % 0.4 Nucleated RBC % 0 Absolute Neutrophils 9.33 H Absolute Lymphocytes 1.68 Absolute Monocytes 1.11 H Absolute Eosinophils 0.22 Absolute Basophils 0.05 VBG Lactate Sodium 138 Potassium 4.2 Chloride 103 Carbon Dioxide 24.4 Anion Gap 10.6 BUN 13 Creatinine 0.8 Estimated GFR/1.73 m2 >= 60.00 Glucose 93 Calcium 8.4 L Total Bilirubin 0.6 AST 22 ALT 27 Alkaline Phosphatase 50 Total Protein 7.5 Albumin 3.7 Lipase 173 Urine Color Urine Clarity Urine pH Ur Specific [place] Urine Protein Urine Ketones Urine Blood Urine Nitrite Urine Bilirubin Urine Urobilinogen Ur Leukocyte Esterase Urine RBC Urine WBC Ur Epithelial Cells Urine Crystals Urine Bacteria Urine Casts Urine Mucus Ur Culture Indicated? Urine Glucose COVID-19 Source SARS-CoV-2 (PCR) 09/04/20 16:45 Blood Blood Culture - Pending 09/04/20 14:00 Blood Blood Culture - Pending Preliminary micro results at discharge 09/04/20 16:45 Blood Culture - Pending Blood 09/04/20 14:00 Blood Culture - Pending Blood [facility] Medical History (Updated 09/04/20 @ 19:52 by Galina Clifford MD) Abdominal pain History of bladder cancer History of kidney cancer Surgical History (Updated 09/04/20 @ 22:34 by Galina Clifford MD) H/O left nephrectomy H/O tubal ligation History of delivery S/P left oophorectomy 09/04/20. 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
--- NOTE | 2020-09-04 22:52 | W.PM.OP ---
Date of service: 09/04/20 Time of Service: 22:52 Operative Note Operative Note DATE OF PROCEDURE: 09/04/20 PRE-OP DIAGNOSIS: L ovarian cyst, possible ovarian torsion. abdominal pain POST-OP DIAGNOSIS: other (L ovarian cyst, L ovarian torsion. ) PROCEDURE: laparoscopic L oophorectomy SURGEON: Galina Clifford PLUGMAN: Jeff To ANESTHESIA TYPE: General LMA/ETT Refer to Anesthesia Record ESTIMATED BLOOD LOSS: 5 PATHOLOGY: other (L ovary, aspirated ovarian fluid for cytology) COMPLICATIONS: None Patient was transported to: PACU Patient's condition: stable Indications: 49 yo female who presented to the [facility] emergency department the port of 72 hours of intermittent intense abdominal pain and the finding of a 7 x 5 x 7 cm left ovarian cyst on CT scan. Findings: Left ovary and attached ovarian cyst with torsion of the left infundibulopelvic ligament. Normal right ovary. Patient had a surgical tubal sterilization with Filshie clips. Adhesions of the peritoneum of the left pelvic sidewall to the posterior cul-de-sac obscuring visualization of the cul-de-sac. Thickened vesicouterine peritoneum apparently from her previous delivery. Normal upper abdomen Procedure Description: Patient was taken to the operating room where she was placed in the dorsal supine position and endotracheal anesthesia was administered without difficulty. SCDs were in place. A surgical timeout was performed. A Magdalene uterine manipulator was inserted into the uterus and left in place during the case. A Cole catheter was inserted to gravity drainage and left in place. She was prepped and draped in the usual sterile fashion. The umbilical fold was infiltrated with quarter percent Marcaine without epinephrine and 12 mm vertical skin incision was made in the umbilicus. Through this incision a varies needle connected to carbon dioxide gas was inserted into the abdomen and intra-abdominal placement confirmed by drop in the intra-abdominal pressure. Once a pneumoperitoneum was established a 12 mm Visiport trocar was introduced into the abdomen under direct visualization. The patient was then placed in Trendelenburg and 2 sites on the abdomen approximately 6 cm diagonal to the right of and left of the umbilical incision were transilluminated the skin infiltrated incised in a direct visualization 2 5 mm ports were placed in the right and left lower quadrants respectively. The abdomen was inspected with the above-noted findings. The left ovary was elevated away from the pelvic sidewall and the single torsion of the left infundibulopelvic ligament was undone. The left infundibular pelvic ligament was grasped with the LigaSure device in closest proximity to the body of the ovary and clamped cauterized and transected in a contiguous fashion. Once the left ovary and cyst had been transected an Endo Catch bag was placed through the umbilical port and into the abdomen where it was opened and the left ovary and cyst were placed into the bag. The bag was then closed and delivered to the abdomen through the umbilical port. The fascial incision was extended using curved Grimm scissors and the superior edges of the bag were delivered past the skin incision held in place and the bag opened. Approximately 50 cc of clear cystic fluid was aspirated and sent to pathology. The remaining clear ovarian cyst fluid was then suction aspirated and the intact bag with ovary specimen delivered through the port site. The specimen was passed off of the surgical field. The 12 mm port was replaced and laparoscope was used to inspect the left ovarian pedicle which was hemostatic. All ports were removed from the patient's abdomen under direct visualization. Four Eden clamps were used to grasp the edges of the fascial incision which was then reapproximated with a running suture of 0 Vicryl. The skin of the periumbilical trocar site was reapproximated with 4-0 Monocryl and the skin of all port sites were reapproximated with skin glue. The patient was awakened, extubated, and transported to recovery area in stable condition. All sponge lap needle counts are correct x2
--- NOTE | 2020-09-04 23:26 | NUR.NOTE ---
Nursing Note: 2315 Pt arrived from PACU s/p Lap Left Oophorectomy. Accompanied by RN and Anesthesia. Pt arousable with sound. Alert when aroused but drousy.VSS.Lungs CTA bilaterally. 3700 Dr Salvador here talking to patient discussing plan. 3 Incisions on abd with dermabond no drainage noted.Bowel sound hypoactive.
--- NOTE | 2020-09-04 23:50 | NUR.NOTE ---
Nursing Note: Pt is starting to drink shade osbaldo and encouraged to try saltines so po pain meds can be started. Pt alert and oriented x3. VSS
[2020-09-05 00:15] VITALS: BP 94/62; PULSE 68; TEMP 36.7; O2SAT 95
[2020-09-05] MEDS: oxyCODONE 5 mg/Acetaminophen 325 mg TAB PO (00:37)
[2020-09-05 01:15] VITALS: BP 92/57; PULSE 67; RESP 18; TEMP 36.8; O2SAT 95
--- NOTE | 2020-09-05 01:27 | NUR.NOTE ---
Nursing Note:Discharge instructions reviewed with with patient. Pt denied questions. Copy given to patient and pt signed signature sheet. IV removed from right antecube, pressure dressing applied. No active bleeding noted from site.
== END 2020-09-05 01:20 | disposition home or self-care (01) ==
LOC: ER 20:08 → SUR 20:45 → OBS 09-05 00:31
PROVIDERS: Student in an Organized Health Care Education/Training Program; Admitting Provider Obstetrics & Gynecology Gynecology; Emergency Provider Student in an Organized Health Care Education/Training Program; PCP Internal Medicine; Visit Provider Surgery
PROC: (CPT 58661; principal; 2020-09-04 20:00)
DX: N83.8 Other noninflammatory disorders of ovary, fallopian tube and broad ligament (principal); N83.512 Torsion of left ovary and ovarian pedicle; N83.292 Other ovarian cyst, left side; Z85.51 Personal history of malignant neoplasm of bladder; Z85.528 Personal history of other malignant neoplasm of kidney; Z90.5 Acquired absence of kidney; Z20.822 Contact with and (suspected) exposure to COVID-19
CPT/HCPCS: 58661; 36415; 80053; 81025; 83690; 87040; 87635; 88305; 96361; 96374; 96376; 99285; 71045; 74177; 81003; 81015; 83605; 85025; 88104; J1100; J1885; J2001; J2250; J2405; J2704; J3010; J3490

== ENCOUNTER 2020-12-31 15:06 | Outpatient (REF) | payer MEDICAID, SELFPAY ==
--- NOTE | 2020-12-31 14:30 | PAPFT_PTH ---
PATIENT: Jael Roman LOC: [facility] U#:[id number] AGE/SX: 50/F ROOM: RE12/31/[address]: Galina Clifford : 1970 BED: DIS: 12/31/2020 SPEC #: [id number] RECD: 12/31/20 18:16 STATUS: NEVILLEFer REDarvin #: [id number] ANGELA: 12/31/20 14:[address]: Galina Clifford [facility] Cytology RECD BY: Kelly Guzman ENTERED: 12/31/20 18:16 SP TYPE: PAPFT OTHR DR: Jamel Wong Tissues: 1 - CX/ENDOCX FOR PAP SMEARS Procedures: PAP THIN PREP/[facility] Screening HPV DNA PROBE Comments: [id number]
== END 2020-12-31 15:07 | disposition home or self-care (01) ==
LOC: LBN 15:06
PROVIDERS: PCP Internal Medicine; Visit Provider Obstetrics & Gynecology Gynecology
DX: Z12.4 Encounter for screening for malignant neoplasm of cervix (principal); Z11.51 Encounter for screening for human papillomavirus (HPV)
CPT/HCPCS: 88142; 87624

== ENCOUNTER 2021-02-11 01:55 | Outpatient (CLI) | payer MEDICAID, SELFPAY ==
--- NOTE | 2021-02-11 07:15 | DI.MAMMO_ITS ---
Exam(s) MG MAMMO SCREENING 60 MIN DUR EXAM: MG MAMMO SCREENING 60 MIN DUR CLINICAL HISTORY: breast cancer screening,BREAST IMPLANTS, Z98.82 TECHNIQUE: Mammograms were interpreted according to the usual protocol including computer analysis w ith CAD system, tomosynthesis and C-view imaging. Implant displaced views were performed in addition to the routine views. COMPARISON: 2014 through 2019 from [facility] FINDINGS: The breasts are composed of heterogeneously dense fibroglandular densities, Breast Density category C . No suspicious masses or suspicious microcalcifications are seen. Bilateral breast implants are intac t. No skin thickening or abnormal axillary lymph nodes are seen. There has been no significant change from prior exams. IMPRESSION: BI-RADS Category 1, Negative mammogram. Yearly screening mammography is recommended. Breast Density Category C, heterogeneously Dense. The mammogram demonstrates the patient's breast tissue is dense. Dense breast tissue is very common a nd is not abnormal but dense breast tissue can make it harder to find cancer on a mammogram. Also, de nse breast tissue may increase breast cancer risk. This information about the result of the mammogram report was provided to the patient to raise their awareness. Use this report when you speak with the patient about their risks for breast cancer, which includes their family history. At that time, you may recommend additional screening tests (Ultrasound or MRI) as they might be useful based on their r isk. A negative radiographic report should not delay biopsy if a dominant or clinically suspicious mass is present. Up to ten percent of cancers are not identified on mammography. A negative report may reinforce clinical impression. Adenosis and dense breasts may obscure an underlying neoplasm. False positive reports average 6 to 10%.
== END 2021-02-11 02:15 ==
PROVIDERS: PCP Internal Medicine; Visit Provider Obstetrics & Gynecology Gynecology
DX: Z12.31 Encounter for screening mammogram for malignant neoplasm of breast (principal); Z98.82 Breast implant status
CPT/HCPCS: 77063; 77067